=== PATIENT | male | born 1960 | race Caucasian/White ===

== ENCOUNTER → 2017-04-23 | Day surgery (SDC) | payer OTHER ==
[~2017-04-23] MED LIST: MULTI-DAY VITA1 EACH PO
--- NOTE | ~2017-04-23 | OR ---
Unit #: [id number] #: [id number] Patient: FLOR MCKENZIE [id number] [address] [id number] [id number] O MR#: [id number] NAME: FLOR MCKENZIE ROOM: Date of Procedure: 04/23/2017 Admission Date: 04/23/2017 Surgeon: Papo Hawkins M.D. : 1960 Attending Physician: Papo Hawkins M.D. Primary Care Physician: Andriy Sanders M.D. OPERATIVE REPORT PROCEDURE PERFORMED Colonoscopy with snare polypectomy. INDICATIONS FOR PROCEDURE Average risk for colorectal cancer. MEDICATIONS Monitored anesthesia. POSTOPERATIVE FINDINGS 1. Multiple polyps, one in ascending, one in transverse, one in sigmoid, all were 4 x 6 mm. They were all snared and sent separately for histopathology. 2. Good prep. 3. Small hemorrhoids. PLAN Repeat colonoscopy in 5 years. DESCRIPTION OF PROCEDURE The patient was explained of the procedure, risks, and benefits along with risks and benefits of anesthesia. He was brought to the endoscopy room. Propofol anesthesia was given. Rectal exam was done, which was normal. Colonoscope was lubricated, passed up the rectum, advanced under direct vision all the way to the cecum. Cecum was identified by ileocecal valve and appendiceal orifice. Several polyps were seen as described. They were all removed and sent for histopathology. I retroflexed in the rectum, small hemorrhoids were noted. Gently, the scope was pulled out. He tolerated it well. Dictated by... Shayla Oneal/ursula TD: 04/24/2017 01:34 JOB #: [id number] Unit #: [id number] #: [id number] Patient: FLOR MCKENZIE OPERATIVE REPORT Page 1 of 1 X Papo Hawkins MD X PROCEDURE OPERATIVE NOTE
== END | disposition home or self-care (01) ==
LOC: COPS 06:37
DX: Z12.11 Encounter for screening for malignant neoplasm of colon (principal); D12.2 Benign neoplasm of ascending colon; D12.5 Benign neoplasm of sigmoid colon; K63.5 Polyp of colon; K64.9 Unspecified hemorrhoids; K21.9 Gastro-esophageal reflux disease without esophagitis; Z79.899 Other long term (current) drug therapy
CPT/HCPCS: 88305; J2250